=== PATIENT | female | born 1950 | race American Indian/Alaskan Native ===

== ENCOUNTER 2018-09-01 15:59 | Emergency (ER) | payer OTHER | END 2018-09-01 18:00 | disposition left against medical advice (07) | LOC: ED 15:59 | DX: Z04.1 Encounter for examination and observation following transport accident (principal); Z53.21 Procedure and treatment not carried out due to patient leaving prior to being seen by health care provider ==

== ENCOUNTER 2018-09-01 16:34 | Emergency (ER) | payer OTHER ==
--- NOTE | 2018-09-01 17:15 | Emergency Department Report ---
Blank Doc - Documentation Documentation: This is a 68-year-old female that presents with neck and left shoulder pain. This initial assessment/diagnostic orders/clinical plan/treatment(s) is/are subject to change based on patient's health status, clinical progression and re- assessment by fellow clinical providers in the ED. Further treatment and workup at subsequent clinical providers discretion. Patient/guardians urged not to elope from the ED as their condition may be serious if not clinically assessed and managed. Initial orders include: 1- Patient sent to [facility] for further evaluation and treatment 2- xrays
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
[2018-09-01] MEDS ORDERED: APRESOLINE IV ONE ×2 (20:00→21:53)
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
[2018-09-01] MEDS ORDERED: FLEXERIL PO ONE (21:20)
[2018-09-01 21:26] LABS: Basophils % (Auto) 0.4 % (0.0-1.8); Eosinophils # (Auto) 0.1 K/mm3 (0.0-0.4); Hematocrit 44.5 % (30.3-42.9); Hemoglobin 14.7 gm/dl (10.1-14.3); Lymphocytes # (Auto) 2.9 K/mm3 (1.2-5.4); Lymphocytes % (Auto) 53.8 % (13.4-35.0); Mean Corpuscular HGB Conc 33 % (30-34); Mean Corpuscular Volume 98 fl (79-97); Monocytes # (Auto) 0.5 K/mm3 (0.0-0.8); Monocytes % (Auto) 8.6 % (0.0-7.3); Platelet Count 286 K/mm3 (140-440); Red Blood Count 4.54 M/mm3 (3.65-5.03); Red Cell Distribution Width 13.3 % (13.2-15.2)
[2018-09-01 21:49] LABS: BUN/Creatinine Ratio 14; Blood Urea Nitrogen 13 mg/dL (7-17); Calcium 9.9 mg/dL (8.4-10.2); Hemolysis Index 3
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
[2018-09-01 23:43] VITALS: BP 142/66
== END 2018-09-01 23:42 | disposition home or self-care (01) ==
LOC: ED 16:34
DX: I16.0 Hypertensive urgency (principal); M54.2 Cervicalgia; M79.632 Pain in left forearm; Z87.891 Personal history of nicotine dependence; V89.2XXA Person injured in unspecified motor-vehicle accident, traffic, initial encounter; Y93.89 Activity, other specified; Y92.488 Other paved roadways as the place of occurrence of the external cause; Y99.8 Other external cause status
CPT/HCPCS: 36415; 70498; 72040; 73030; 73060; 73090; 80048; 85025; 96374; 96376; 99284; J0360